=== PATIENT | male | born 1975 | race Caucasian/White ===

== ENCOUNTER → 2016-02-11 | Outpatient (CLI) | payer BC ==
[~2016-02-11] MED LIST: DIPH25CA50 PO; PANT40TA PO
--- NOTE | 2016-02-11 10:50 | DIAGNOSTIC IMAGING REPORT ---
RIGHT LOWER EXTREMITY VENOUS DOPPLER CLINICAL HISTORY: Right calf pain. COMPARISON STUDY: No previous studies for comparison. TECHNIQUE: Sonography of the deep venous system of the right lower extremity was performed. Compression and augmentation were evaluated. FINDINGS: The right common femoral, superficial femoral and popliteal veins were compressible. Augmentation was normal. Flow was shown within the deep calf vessels. IMPRESSION: No evidence of deep venous thrombus within the right lower extremity. Electronically signed by: Gregor Best M.D. 02/11/2016 10:48 AM
== END | disposition home or self-care (01) ==
LOC: C.ULTRBC 10:17
PROVIDERS: ATTEND Internal Medicine Geriatric Medicine
DX: M79.669 Pain in unspecified lower leg (principal)

== ENCOUNTER → 2017-04-20 | Outpatient (CLI) | payer BC ==
[~2017-04-20] MED LIST changes: +ALL100 PO; +MULT-513 PO
[2017-04-20 11:11] LABS: BASO % 1.9 %; BASO ABS # 0.09 K/uL (0-0.2); EOS % 4.4 %; EOS ABS # 0.21 K/uL (0-0.5); HEMATOCRIT 42.6 % (42-52); HEMOGLOBIN 15.5 g/dL (14.0-18.0); LYMPH % 38.5 %; LYMPH ABS # 1.85 K/uL (1.2-3.4); MEAN CELL VOLUME 92.4 fL (80-100); MEAN CORPUSCULAR HEMOGLOBIN 33.6 pg (25-34); MEAN CORPUSCULAR HGB CONC 36.4 g/dl (32-36); MEAN PLATELET VOLUME 11.1 fL (7.4-10.4); MONO % 8.3 %; NEUT % 46.9 %; NEUT ABS # 2.25 K/uL (1.4-6.5); PLATELET COUNT 208 K/uL (130-400); RED CELL DISTRIBUTION WIDTH CV 12.6 % (11.5-14.5); RED CELL DISTRIBUTION WIDTH SD 42.5 fL (36.4-46.3)
[2017-04-20 11:39] LABS: ALBUMIN 4.1 gm/dl (3.4-5.0); ALT/SGPT 49 U/L (12-78); AST/SGOT 33 U/L (15-37); BLOOD UREA NITROGEN 6 mg/dl (7-18); CARBON DIOXIDE 25 mmol/L (21-32); CREATININE 0.86 mg/dl (0.60-1.40); GLUCOSE 81 mg/dl (70-99); POTASSIUM 3.8 mmol/L (3.5-5.1); SODIUM 137 mmol/L (136-145); URIC ACID 5.6 mg/dl (2.6-7.2)
[2017-04-20 11:42] LABS: ALKALINE PHOSPHATASE 55 U/L (45-117); TOTAL PROTEIN 7.4 gm/dl (6.4-8.2)
== END | disposition home or self-care (01) ==
LOC: C.LABBC 08:58
PROVIDERS: ATTEND Family Medicine Adult Medicine
DX: R10.9 Unspecified abdominal pain (principal); M10.9 Gout, unspecified

== ENCOUNTER 2017-04-21 19:55 | Emergency (ER) | payer BC ==
[~2017-04-21] VITALS: Ht 190.5 cm; Wt 95.6 kg
[~2017-04-21 19:55] MED LIST changes: -ALL100 PO; -MULT-513 PO
[2017-04-21 20:00] VITALS: TEMP 37; Ht 190.5 cm; Wt 95.6 kg
[2017-04-21] MEDS ORDERED: KETOROLAC TROMETHAMINE 60 MG/2 ML VIAL IM STA (21:31)
--- NOTE | 2017-04-21 22:21 | DIAGNOSTIC IMAGING REPORT ---
ULTRASOUND RIGHT UPPER QUADRANT ABDOMEN CLINICAL HISTORY: Right upper quadrant abdominal pain. COMPARISON STUDY: No priors. TECHNIQUE: Real-time, grayscale, and color flow sonography of the right upper quadrant of the abdomen was performed. Images are reviewed in the transverse and longitudinal planes. FINDINGS: Liver: The liver is enlarged and demonstrates heterogeneously increased echotexture consistent with hepatic steatosis. There is no intrahepatic biliary ductal dilatation. The main portal vein is patent. Gallbladder: Small gallbladder polyps are incidentally noted and measure up to 4 mm. No gallstones are identified. There is no gallbladder wall thickening or pericholecystic fluid. A sonographic Kaur's sign is reportedly absent. The common bile duct measures up to 0.4 cm in diameter. Pancreas: Not well visualized due to overlying bowel gas. Right kidney: Survey images of the right kidney demonstrate normal size and echotexture. There is no hydronephrosis. Ascites: None. IMPRESSION: 1. No acute sonographic abnormality is identified in the right upper quadrant. No gallstones are seen. 2. Hepatomegaly and hepatic steatosis. Electronically signed by: Ronni Shah M.D. 04/21/2017 10:20 PM Dictated Date/Time: 04/21/2017 10:17 PM
--- NOTE | 2017-04-21 22:24 | EMERGENCY ROOM VISIT NOTE ---
History First contact with patient: 21:15 Chief Complaint: FLANK PAIN Stated Complaint: R SIDE BACK PAIN History of Present Illness The patient is a 41 year old male who presents to the Emergency Room with complaints of right flank pain intermittently 1 year. The patient states he has been experiencing pain approximately once per month for the past year. Over the past 2 months, the patient has had increased pain and been complaining about it more. Since Wednesday of this week, the patient states pain has been getting worse. He did see his primary care provider yesterday, and had labs and a urinalysis performed yesterday here at the hospital. The patient states he was informed that time by his PCP that previous labs completed in 2016 showed elevated LFTs. The patient states he did not know of any elevation at that time, and is concerned for possible liver disease. He states since yesterday and having labs completed, and his pain has significantly worsened. He is scheduled for an ultrasound of the abdomen to be completed on Wednesday, but states he did not feel that he could wait until then. He has not taken any medications for his pain. He denies any injury, and states he does feel a bulge in the right flank, which is where the majority of his pain is located. He rates the pain 8/10, and describes it as constant, dull, and changing to more of a burning or tearing sensation more recently. He states this morning, his first urine appeared brown, however the rest of his urine throughout the day has been normal. The patient works on the [employer], and spends frequent amount of time sitting. He denies any recent lifting heavy objects or overall physical activity. Review of Systems A complete 10 point review of systems was reviewed with the patient with pertinent positives and negatives as per history of present illness. All else were negative. Past Medical/Surgical History GERD, gout Social History Smoking Status: Current Every Day Smoker Marital Status: Housing Status: lives with family Occupation Status: employed Current/Historical Medications Scheduled Allopurinol (Allopurinol), 100 MG PO DAILY Multivitamins/Minerals (Mvi With Minerals), 1 TAB PO DAILY Pantoprazole (Protonix), 40 MG PO DAILY Physical Exam Vital Signs Date Time Temp Pulse Resp B/P (MAP) Pulse Ox O2 Delivery O2 Flow Rate FiO2 04/21/17 23:28 74 16 137/91 97 04/21/17 22:42 75 20 128/78 97 Room Air 04/21/17 20:00 37.0 98 20 130/91 96 Room Air Physical Exam VITALS: Vitals are noted on the nurse's note and reviewed by myself. Vital signs stable. GENERAL: This is a 41-year-old white male, in no acute distress, nondiaphoretic , well-developed well-nourished. SKIN: The skin was without rashes, erythema, edema, or bruising. There is no tenting of the skin. Capillary reflex less than 2 seconds. HEAD: Normocephalic atraumatic. EARS: External auditory canals clear, tympanic membranes pearly camacho without erythema or effusion bilaterally. EYES: Pupils equal round and reactive to light and accommodation. Conjunctivae without injection, sclerae without icterus. Extraocular movements intact. NOSE: Patent, turbinates without inflammation or discharge. No sinus tenderness. MOUTH: Mucous membranes moist. Tonsils are not enlarged. Pharynx without erythema or exudate. Uvula midline. Airway patent. Tongue does not deviate. NECK: Supple without nuchal rigidity. No lymphadenopathy. No thyromegaly. Cervical spine is nontender. No JVD. HEART: Regular rate and rhythm without murmurs gallops or rubs. LUNGS: Clear to auscultation bilaterally without wheezes, rales or rhonchi. No dullness to percussion. No retractions or accessory muscle use. ABDOMEN: Positive bowel sounds x 4. Normal tympanic percussion. Mild right upper quadrant tenderness. Soft, nontender, without masses or organomegaly. Kaur sign negative. No guarding or rebound tenderness. Positive CVA tenderness on the right. MUSCULOSKELETAL: No muscle atrophy, erythema, or edema noted. The patient has tenderness of the right 12th rib on palpation. Full range of motion without joint tenderness in all extremities. No other tenderness to palpation. Normal gait. Strength 5/5 throughout. NEURO: Patient was alert and oriented to person place and time. Normal sensation to light and sharp touch. Deep tendon reflexes 2+ throughout. No focal neurological deficits. Medical Decision & Procedures ER Provider Diagnostic Interpretation: ULTRASOUND RIGHT UPPER QUADRANT ABDOMEN CLINICAL HISTORY: Right upper quadrant abdominal pain. COMPARISON STUDY: No priors. TECHNIQUE: Real-time, grayscale, and color flow sonography of the right upper quadrant of the abdomen was performed. Images are reviewed in the transverse and longitudinal planes. FINDINGS: Liver: The liver is enlarged and demonstrates heterogeneously increased echotexture consistent with hepatic steatosis. There is no intrahepatic biliary ductal dilatation. The main portal vein is patent. Gallbladder: Small gallbladder polyps are incidentally noted and measure up to 4 mm. No gallstones are identified. There is no gallbladder wall thickening or pericholecystic fluid. A sonographic Kaur's sign is reportedly absent. The common bile duct measures up to 0.4 cm in diameter. Pancreas: Not well visualized due to overlying bowel gas. Right kidney: Survey images of the right kidney demonstrate normal size and echotexture. There is no hydronephrosis. Ascites: None. IMPRESSION: 1. No acute sonographic abnormality is identified in the right upper quadrant. No gallstones are seen. 2. Hepatomegaly and hepatic steatosis. Electronically signed by: Ronni Shah M.D. 04/21/2017 10:20 PM Dictated Date/Time: 04/21/2017 10:17 PM PA CHEST WITH RIGHT-SIDED RIB SERIES CLINICAL HISTORY: Right posterior rib pain. FINDINGS: A PA chest radiograph with 4 additional views may right-sided rib series is compared to study dated 09/07/2013. The cardiomediastinal silhouette is unremarkable. The lungs and pleural spaces are clear. No pneumothorax is seen. There is no radiographic evidence of acute/distracted right-sided rib fracture on the rib series. The remainder of the bony thorax is grossly intact. IMPRESSION: 1. The lungs are clear. 2. There is no radiographic evidence of right-sided rib fracture as clinically queried. Electronically signed by: Ronni Shah M.D. 04/21/2017 11:03 PM Dictated Date/Time: 04/21/2017 11:01 PM Medications Administered Medications (Trade) Dose Ordered Sig/Karthik Route Start Time Stop Time Status Last Admin Dose Admin Ketorolac Tromethamine (Toradol Inj) 60 mg NOW STAT IM 04/21/17 21:31 04/21/17 21:33 DC 04/21/17 21:49 60 MG ED Course The patient was seen and evaluated as above. Previous medical records including laboratory results from yesterday reviewed. Imaging performed as above. This was reviewed by myself and radiologist as above. I discussed all findings with patient at bedside peer Discharge instructions reviewed, the patient was discharged home in good condition. Medical Decision This is a 41-year-old male patient who presents to the emergency department today complaining of intermittent right flank pain 1 year. The pain has significantly worsened since yesterday, when the patient was told by his primary care provider that it could potentially be a liver or kidney issue. The patient states he has been very concerned due to previous LFTs being elevated back in 2016. He had outpatient labs performed yesterday, which I did review. These did not reveal any leukocytosis, anemia, thrombocytopenia. Renal , hepatic function normal. Electrolytes normal. Patient's AST was 33, and ALT was 49. UA was negative for signs of infection, blood, or other abnormalities. Imaging was performed as above due to the right flank pain as well as rib pain. There is no obvious acute abnormalities. There is some hepatic steatosis and slight hepatomegaly, however I do not suspect this is the cause of the patient's discomfort, as his tenderness is overlying the rib. The patient states he is feeling significantly improved after Toradol and the knowledge of no acute abnormalities. I suspect his symptoms were exacerbated over the past 24-48 hours due to the knowledge of previous abnormal liver function studies. The patient was encouraged to treat himself outpatient for pain with OTC analgesics. He was agreeable to this plan. He is encouraged to follow-up closely with his primary care provider due to the abnormalities found on ultrasound. Etiologies such as renal colic, musculoskeletal, appendicitis, diverticulitis, mesenteric ischemia, aortic pathology, infections, inflammatory bowel disease, PUD, biliary pathology, UTI, as well as others were entertained. Medication Reconcilliation Current Medication List: was personally reviewed by me Blood Pressure Screening Patient's blood pressure: Normal blood pressure Impression Primary Impression: Right flank pain Departure Information Dispostion Home / Self-Care Condition GOOD Referrals Yovany Bailey M.D. (PCP) Patient Instructions ED Flank Pain Uncertain Cause, My [facility] Additional Instructions He was seen in the emergency department today for right flank pain. As discussed, this pain does appear to be over your rib. Ultrasound did show slightly enlarged liver with some mild hepatic steatosis. You should follow-up with your primary care provider regarding this finding. Ibuprofen(Motrin, Advil) may be used for fever or pain. Use 600mg every six hours as needed. Take with food. Avoid using more than 2400mg in a 24 hour period. Do not use 2400mg per day for more than three consecutive days without physician direction. Prolonged inappropriate use can lead to stomach upset or ulcers. (AND/OR) Acetaminophen(Tylenol) may be used for fever or pain. Use 1000mg every six hours as needed. Avoid using more than 3000mg in a 24 hour period. He may using ice pack or heating pad to help with discomfort and swelling. As discussed, labs which were performed yesterday were reviewed. There were no significant abnormal findings. Please follow-up with your primary care provider for ongoing management of your concerns. Return to the emergency department for any significantly worsening pain, redness , discoloration, or other concerning symptoms.
[2017-04-21] MEDS ORDERED: MULT-513 PO (22:58)
[2017-04-21] MEDS ORDERED: ALL100 PO (22:58)
--- NOTE | 2017-04-21 23:04 | DIAGNOSTIC IMAGING REPORT ---
PA CHEST WITH RIGHT-SIDED RIB SERIES CLINICAL HISTORY: Right posterior rib pain. FINDINGS: A PA chest radiograph with 4 additional views may right-sided rib series is compared to study dated 09/07/2013. The cardiomediastinal silhouette is unremarkable. The lungs and pleural spaces are clear. No pneumothorax is seen. There is no radiographic evidence of acute/distracted right-sided rib fracture on the rib series. The remainder of the bony thorax is grossly intact. IMPRESSION: 1. The lungs are clear. 2. There is no radiographic evidence of right-sided rib fracture as clinically queried. Electronically signed by: Ronni Shah M.D. 04/21/2017 11:03 PM Dictated Date/Time: 04/21/2017 11:01 PM
[2017-04-21 23:28] VITALS: BP 137/91; PULSE 74; O2SAT 97
== END 2017-04-21 23:28 | disposition home or self-care (01) ==
LOC: C.EDB 19:56 → C.EDC 23:28
DX: R10.9 Unspecified abdominal pain (principal); R10.11 Right upper quadrant pain; R16.0 Hepatomegaly, not elsewhere classified; K76.0 Fatty (change of) liver, not elsewhere classified; F17.200 Nicotine dependence, unspecified, uncomplicated

== ENCOUNTER → 2017-04-24 | Outpatient (CLI) | payer BC ==
[~2017-04-24] MED LIST changes: +ALL100 PO; -DIPH25CA50 PO; +MULT-513 PO
--- NOTE | 2017-04-24 10:43 | DIAGNOSTIC IMAGING REPORT ---
THORACIC SPINE 3 VIEWS ROUTINE HISTORY: Pain M54.9 Mid back [id number] COMPARISON: None. FINDINGS: There is no fracture. No subluxation. Mild degenerative disc changes throughout. Minimal osteophytic reaction low thoracic region. No acute process. IMPRESSION: Mild degenerative change. No acute bony abnormality. The above report was generated using voice recognition software. It may contain grammatical, syntax or spelling errors. Electronically signed by: Boo Moser M.D. 04/24/2017 10:42 AM Dictated Date/Time: 04/24/2017 10:41 AM
== END | disposition home or self-care (01) ==
LOC: C.RAD1850 10:19
PROVIDERS: ATTEND Family Medicine Adult Medicine
DX: M54.9 Dorsalgia, unspecified (principal)

== ENCOUNTER 2018-06-06 05:57 | Observation (INO) ==
--- NOTE | 2018-05-13 14:37 | PAT Medication Instructions ---
Medication Instructions Date of Service May 13, 2018 Home Medications allopurinol 100 mg PO QAM pantoprazole 40 mg PO QAM Garlic 1 tab PO QAM ibuprofen 400 mg PO QID PRN multivitamin 1 tab PO QAM ASK your surgeon for instructions ibuprofen 400 mg PO QID PRN STOP taking 2 weeks before surgery Garlic 1 tab PO QAM DO NOT take the morning of surgery multivitamin 1 tab PO QAM Take morning of surgery With a small sip of water, OTHERWISE NOTHING TO EAT OR DRINK AFTER MIDNIGHT: allopurinol 100 mg PO QAM pantoprazole 40 mg PO QAM Other Notes If you have any questions please call us at [phone] or [phone] or [phone] or [phone]
--- NOTE | 2018-05-16 08:49 | Anesthesiology Consultation ---
Date of Service May 16, 2018 Assessment & Plan (1) Encounter for pre-operative examination: PATIENT HAS PROPOFOL ALLERGY. HAD ANAPHYLACTIC REACTION DURING EGD/COLONOSCOPY 2013 AND WAS REFERRED FOR ALLERGY TESTING. Allergy Consult 2013: "Skin testing for lidocaine was negative...They does not have any evidence of egg allergy. Some patients who receive propofol and have egg allergies have had allergic reactions. That certainly is not the case here. He does not have any sensitivity to lidocaine. It is unlikely that he is latex sensitive. He may have had mast cell degranulation from propofol on a non-IgE mediated basis. This has been reported in the literature. Unfortunately a tryptase level was not obtained at the time of his systemic reaction...The patient can safely use lidocaine again. My recommendation at this point would be to avoid propofol completely." *pt also rec'd TOPICAL Cetacaine spray during EGD. It does not appear this was skin tested with director religious education, and its components (benzocaine, tetracaine, butamben, benzalkonium chloride, cetyldimethylethylam monium bromide) are still listed in patient's allergies. Chart Review Chart Review: Acceptable Risk for Surgery and Patient seen in Pre Admission Testing Teaching & Discussion Instructed NPO after midnight before surgery, except medications with 15 cc of water. Medication instructions provided according to the PAT guidelines. History Surgery Operation Date: 06/06/18 07:30 Proposed Procedures p C5-C6 Anterior Cervical Discectomy and Fusion with Iliac Crest Bone Graft - Suhas Soto, Height/Weight Height: 6 ft 2.5 in Weight: 105.2 kg Allergies Allergy/AdvReac Type Severity Reaction Status Date / Time benzalkonium chloride Allergy Severe rash, SOB, Verified 04/14/18 14:29 tachycardia benzocaine Allergy Severe rash, SOB, Verified 04/14/18 14:29 tachycardia butamben Allergy Severe rash, SOB, Verified 04/14/18 14:29 tachycardia Cetyldimethylethylammonium Allergy Severe rash, SOB, Verified 04/14/18 14:29 [place] tachycardia propofol Allergy Severe rash, SOB, Verified 04/14/18 14:30 tachycardia-"WENT INTO SHOCK" tetracaine Allergy Severe rash, SOB, Verified 04/14/18 14:29 tachycardia Medications Home Medications Medication Instructions Recorded Confirmed Last Taken allopurinol 100 mg PO QAM 10/27/17 04/14/18 11/30/17 pantoprazole 40 mg PO QAM 10/27/17 04/14/18 11/30/17 Garlic 1 tab PO QAM 04/14/18 04/14/18 Unknown ibuprofen 400 mg PO QID PRN 04/14/18 04/14/18 Unknown multivitamin 1 tab PO QAM 04/14/18 04/14/18 Unknown Past Medical History Medical History Gout Allergic reaction (Acute 10/03/13) Cervical radicular pain GERD (gastroesophageal reflux disease) Past Surgical History Surgical History History of colonoscopy History of esophagogastroduodenoscopy (EGD) History of tonsillectomy Past Anesthesia History No Family Hx of Anesthesia Complications and Other Anaphylactic reaction to PROPOFOL. HAD ALLERGY TESTING, 2013. History of PONV No Motion Sickness Screening History of Motion Sickness: Yes STOP BANG Total 3 Social History Smoking Status: Light tobacco smoker tobacco type: cigars Smoking cigarettes per day: 2-3 CIGARS A DAY Do You Dip or Chew Tobacco: Yes (1 CAN A WEEK) Hx Alcohol Use: Yes Alcohol type: beer alcohol intake frequency: a few times a week Hx Substance Use: No substance use type: does not use Exercise / Class Metabolic Activity II 4-5 Yardwork/Stairs/Walk up hill Review of Systems Pt denies any recent chest pain, shortness of breath, palpitations, cough, fever or URI. Physical Exam Vital Signs BP: 135/88 P: 80bpm SPO2: 95% RA T: 98.3 F R: 16 ENMT Mouth: + dental restorations (crowns on top front incisors); no chipped teeth and no loose teeth Thyromental Distance: > or= 3.5 Finger Breadths (3.5) Mallampati Class: II Neck normal visual inspection and + limited neck extension (mildly) Respiratory normal respiratory effort Auscultation: lungs clear to auscultation bilaterally Cardiovascular Rate/Rhythm: regular rate and regular rhythm Heart Sounds: no murmur Extremities: no edema Testing Electrocardiogram Date: 12/01/17 Findings: + NSR @ (79) Left axis deviation. Chest X-Ray Date: 10/27/17 Findings: + NAD Laboratory Results 05/16/18 09:00 05/16/18 09:00 Blood Type A Positive 05/16/18 09:00 Antibody Screen NEGATIVE 05/16/18 09:00 PT 10.9 Seconds (9.0-12.0) 05/16/18 09:00 INR 1.1 (0.9-1.1) 05/16/18 09:00 APTT 26.4 Seconds (21.0-31.0) 05/16/18 09:00
[2018-05-16 10:09] LABS: Basophils # (auto) 0.07 K/uL (0-0.2); Basophils % (auto) 1.5 %; Eosinophils # (auto) 0.17 K/uL (0-0.5); Eosinophils % (auto) 3.6 %; Hematocrit (blood only) 39.6 % (42-52); Hemoglobin 14.3 g/dL (14.0-18.0); Immature Granulocytes # (auto) 0.01 K/uL (0.00-0.02); Immature Granulocytes % (auto) 0.2 %; Lymphocytes # (auto) 2.09 K/uL (1.2-3.4); Lymphocytes % (auto) 44.8 %; Mean Corpuscular Hgb Conc 36.1 g/dL (32-36); Mean Corpuscular Volume 91.7 fL (80-100); Mean Platelet Volume 10.8 fL (7.4-10.4); Monocytes # (auto) 0.43 K/uL (0.11-0.59); Monocytes % (auto) 9.2 %; Neutrophils # (auto) 1.89 K/uL (1.4-6.5); Neutrophils % (auto) 40.7 %; Platelet Count 189 K/uL (130-400); RDW Coefficient of Variation 12.5 % (11.5-14.5); RDW Standard Deviation 42.2 fL (36.4-46.3); Red Blood Count 4.32 M/uL (4.7-6.1); White Blood Count 4.66 K/uL (4.8-10.8)
[2018-05-16 10:32] LABS: INR 1.1 (0.9-1.1); Partial Thromboplastin Time 26.4 Seconds (21.0-31.0); Prothrombin Time 10.9 Seconds (9.0-12.0)
[2018-05-16 11:04] LABS: BUN Creatinine Ratio 15.1 (10-20); Calcium 8.8 mg/dl (8.5-10.1); Creatinine Clr Calc Pharmacy 150.7 ml/min; Est GFR (Non-African American) 108.8; Potassium 4.1 mmol/L (3.5-5.1)
--- NOTE | 2018-06-03 14:39 | History and Physical Report ---
DATE OF ADMISSION: 06/06/2018 CHIEF COMPLAINT: Neck pain, arm pain, weakness and signs of spinal cord compression. He has significant cord compression C5-C6 cervical spine and combination of disc osteophyte formation. HISTORY OF PRESENT ILLNESS: He is 42. He has had ongoing difficulties with numbness and tingling. PAST MEDICAL HISTORY: Positive for difficulty with anesthesia, hypertension. No COPD, diabetes, connective tissue disorder, ulcer disease. PAST SURGICAL HISTORY: Tonsils and wisdom teeth. ALLERGIES: LIDOCAINE, PROPOFOL. CURRENT MEDICATIONS: Allopurinol. FAMILY HISTORY: Diabetes, stroke, heart disease and breast carcinoma. SOCIAL HISTORY: . No tobacco or alcohol. He is getting weaker with upper and lower extremities. REVIEW OF SYSTEMS: He admits to joint pain, stiffness, weakness, muscle pain and progressive deficits. Denies fever, sweats, chills. Denies chest pain, palpitations. No nausea, vomiting. No urgency, frequency or loss of bowel or bladder control. PHYSICAL EXAMINATION: GENERAL: He is 6 feet 3 inches, 220, is in distress, certainly concerned. VITAL SIGNS: Blood pressure 130/80, pulse 80, respiratory rate 16, afebrile. He is alert, oriented, mood appropriate. HEENT: Essentially normal. Cranial nerves essentially normal. CARDIAC: Normal S1, S2, about 80 beats per minute. LUNGS: Clear to auscultation. No rales, rhonchi or wheezing. IMAGES: His images demonstrate spinal cord compression, C5-C6 cervical spine. IMPRESSION: C5-C6 spinal cord compression, progressive neurological deficit. PLAN: Includes an ACDF of the cervical spine with iliac crest bone graft.
[2018-06-06] MEDS ORDERED: CEFAZOLIN 2000MG 2,000 MG/15 ML SYR IV SCH (06:00)
[2018-06-06] MEDS ORDERED: SODIUM CHLORIDE 0.9% 1,000 ML IV SCH (06:00)
[2018-06-06] MEDS ORDERED: LR 15ML/HR IV SCH (06:00)
[2018-06-06] MEDS ORDERED: BACITRACIN INJ 50,000 UNIT VIAL ONE (06:59)
[2018-06-06] MEDS ORDERED: THROMBIN FOR SOLN 20000 UNIT KIT ONE (06:59)
[2018-06-06] MEDS ORDERED: BUPIVACAINE/EPINEPHRINE 0.5% MPF 1:200,000 30 ML VIAL ONE (06:59)
[2018-06-06] MEDS ORDERED: GELATIN SPONGE SZ 100 ONE (07:00)
[2018-06-06] MEDS ORDERED: MIDAZOLAM HCL 1 MG/ML 2ML VIAL ONE (07:12)
[2018-06-06] MEDS ORDERED: fentaNYL citrate 100 MCG/2 ML VIAL ONE ×2 (07:12)
--- NOTE | 2018-06-06 07:14 | History & Physical Bridge Note ---
Date of Service June 06, 2018 History & Physical Bridge Note I have examined the patient, reviewed the History & Physical and in the interval since the performance of the History & Physical I have noted the following changes of clinical significance: no changes noted
[2018-06-06] MEDS ORDERED: HYDROmorphone INJ 2 MG/ML SYR/VIAL ONE (08:17)
[2018-06-06] MEDS ORDERED: NEOSTIGMINE METHYLSULFATE 5 MG/5 ML SYR ONE (08:19)
[2018-06-06] MEDS ORDERED: LABETALOL HCL IV 5 MG/ML 20ML IV ONE (08:19)
[2018-06-06] MEDS ORDERED: ONDANSETRON INJ 2 MG/ML 2 ML VIAL ONE (08:19)
[2018-06-06] MEDS ORDERED: CISATRACURIUM BESYLATE IV SOLN 2 MG/ML 10 ML VIAL IV ONE (08:19)
[2018-06-06] MEDS ORDERED: ETOMIDATE 2 MG/ML 20 ML VIAL IV ONE (08:19)
[2018-06-06] MEDS ORDERED: GLYCOPYRROLATE 0.2 MG/ML VIAL ONE (08:19)
[2018-06-06] MEDS ORDERED: DEXAMETHASONE SOD INJ 4 MG/ML VIAL ONE (08:19)
[2018-06-06] MEDS ORDERED: ATROPINE SULFATE 0.1 MG/ML 10ML SYR IV PRN (09:14)
[2018-06-06] MEDS ORDERED: ePHEDrine sulfate 50 MG/ML AMP IV PRN (09:14)
[2018-06-06] MEDS ORDERED: FLUMAZENIL 0.1 MG/1 ML 10 ML VIAL IV PRN (09:14)
[2018-06-06] MEDS ORDERED: PROMETHAZINE HCL 12.5 MG in SODIUM CHLORIDE 0.9% 50 ML IV PRN (09:14)
[2018-06-06] MEDS ORDERED: HYDROmorphone INJ 1 MG/ML SYRINGE IV PRN (09:14)
[2018-06-06] MEDS ORDERED: LABETALOL HCL IV 5 MG/ML 20ML IV PRN (09:14)
[2018-06-06] MEDS ORDERED: ONDANSETRON INJ 2 MG/ML 2 ML VIAL IV PRN ×2 (09:14→10:52)
[2018-06-06] MEDS ORDERED: NALOXONE HCL 0.4 MG/1 ML VIAL/CARP IV PRN ×2 (09:14→10:52)
--- NOTE | 2018-06-06 09:16 | Post Operative Brief Note ---
Immediate Post Op Note v1 Date of Surgery June 06, 2018 Pre & Post Diagnosis Operation Date: 06/06/18 07:30 Pre-Op Diagnosis: Cord Compression Post-Op Diagnosis: Cord Compression Procedure Operation Date: 06/06/18 07:30 Actual Procedures p C5-C6 Anterior Cervical Discectomy and Fusion with Left Iliac Crest Bone Graft(Not Applicable) - Suhas Soto DO Surgeon Suhas Soto DO Insulation Estimator karli Estimated Blood Loss 10 Findings Consistent with Post-Op Diagnosis Drains Дмитрий Drain Disposition Accompanied Patient To Recovery: Yes Overlapping Procedure I was immediately available: during the entire case. Back up surgeon: was not required during procedure.
--- NOTE | 2018-06-06 10:21 | Fluoroscopy Report ---
FL spine 1V any level HISTORY: Laminectomy and fusion. FLUOROSCOPY TIME: 4.4 seconds. FINDINGS: Intraoperative fluoroscopy was provided for the cervical spine. 2 fluoroscopic spot images were obtained. Findings consistent with an anterior cervical fusion at C5-C6 IMPRESSION: Fluoroscopy provided for a cervical fusion.. The above report was generated using voice recognition software. It may contain grammatical, syntax or spelling errors. Electronically signed by: Boo Moser M.D. 06/06/2018 10:20 AM
--- NOTE | 2018-06-06 10:31 | Anesthesiology Progress Note ---
Date of Service June 06, 2018 Anesthesia Post Procedure Vital Signs Vital Signs: Temp Pulse Resp BP Pulse Ox 06/06/18 10:02 63 16 146/79 H 96 06/06/18 10:00 58 L 14 146/79 H 95 06/06/18 09:50 62 17 152/94 H 96 06/06/18 09:40 59 L 14 128/98 96 06/06/18 09:30 58 L 14 156/87 H 94 06/06/18 09:20 64 14 151/105 H 94 06/06/18 09:14 36.2 C L 62 14 134/91 96 06/06/18 06:15 36.5 C 87 16 158/99 H 98 Notes Mental Status: alert / awake / arousable Patient Amnestic to Procedure: Yes Nausea / Vomiting: adequately controlled Pain: adequately controlled Airway Patency, RR, SpO2: stable & adequate BP & HR: stable & adequate Hydration State: stable & adequate Anesthetic Complications: no major complications apparent
[2018-06-06] MEDS ORDERED: DEXAMETHASONE SOD PHOSPHATE 8 MG in SYRINGE 0 ML IV PRN (10:52)
[2018-06-06] MEDS ORDERED: HYDROmorphone INJ 0.5 MG/0.5 ML SYR IV PRN (10:52)
[2018-06-06] MEDS ORDERED: OXYCODONE HCL IR 5 MG TAB (IMMEDIATE RELEASE) PO PRN (10:52)
[2018-06-06] MEDS ORDERED: LORazepam 0.5 MG/1 ML VIAL IV PRN (10:52)
[2018-06-06] MEDS ORDERED: ACETAMINOPHEN 1,000 MG/100 ML VIAL IV PRN (10:52)
[2018-06-06] MEDS ORDERED: RACEPINEPHRINE 2.25% NEBU SOLN 0.5 ML VIAL INH PRN (10:52)
[2018-06-06] MEDS: SODIUM CHLORIDE 0.9% 1000ML 1,000 ML IV SCH ×2 (11:42→23:31)
[2018-06-06] MEDS: CEFAZOLIN 2000MG 2,000 MG/15 ML SYR IV SCH ×2 (15:43→23:31)
--- NOTE | 2018-06-06 18:27 | Operative Report ---
DATE OF OPERATION: 06/06/2018 PREOPERATIVE DIAGNOSIS: Cord compression C5-C6 cervical. POSTOPERATIVE DIAGNOSIS: Same. PROCEDURE: Anterior cervical discectomy and fusion and left iliac crest bone graft. SURGEON: Suhas Soto M.D. CLAIM TAKER: Wesly Rollins PA-C. COMPLICATIONS: No complications. BLOOD LOSS: Less than 10 mL. DESCRIPTION OF PROCEDURE: The patient was taken to the operating room and general intubated anesthetic provided to the patient. Kept supine, prepped and draped sterile. We made a skin incision, fascial incision, a classic Venegas-Lugo approach to the cervical spine dissecting the soft tissue. We came right down on the 5-6 interval. We did a formal discectomy. We got lateral to the uncovertebral joints bilaterally. We got back and through the posterior longitudinal ligament. There was a significant amount of bone osteophyte on the cord. This was dissected free and I was pleased with the complete discectomy at the 5-6 interval. We then went to the left iliac crest, made a skin incision, fascial incision. I fashioned a structural autograft for the vacated discectomy site up at the cervical spine. This measured approximately 7-8 mm in height, tapered to about 7, approximately 16-17 mm in length. This was placed into the vacated discectomy. We irrigated. We then placed an anterior plate from the [employer] over the construct. This was transfixed with 16 mm screws. The plate was 14 mm in length. The postoperative x-rays in the operating room were superb; proper positioning of the implant. We then irrigated and closed the cervical spine over a Pelham drain with suture. Sterile dressings applied. The iliac crest closed with 1-0 Vicryl, 2-0 and 3-0 nylon. Sterile dressings applied throughout. The patient was placed in cervical collar. We transported the patient to PACU improved stable. I was with the patient through the entire portion. I was with the patient on transport to PACU. Implants used by the [employer]. There were no complications. I attest to the content of the Intraoperative Record and any orders documented therein. Any exception s are noted below.
[2018-06-06] MEDS ORDERED: ACETAMINOPHEN 325 MG TAB PO PRN (19:15)
[2018-06-06] MEDS: DOCUSATE SODIUM 100 MG CAP PO SCH (20:31)
--- OUTSIDE RECORDS SUMMARY | 2018-06-06 22:47 | External Medical Summary | Continuity of Care Document ---
:1975 Author Name Ruddy Nichols, Provider Address Unavailable Unavailable , Care Team Providers Name Role Phone Lynn Nichols, Yovany Unavailable [email or web address] Lynn Nichols, Yovany Unavailable Unavailable Unavailable Unavailable Unavailable Problems Weakness of lower extremity (729.89) (R29.898) Weakness of both upper extremities (729.89) (R29.898) Muscle fatigue (729.89) (M62.89) Cervical radicular pain (723.4) (M54.12) Degenerative cervical spinal stenosis (723.0) (M48.02) Mid back pain (724.5) (M54.9) Paresthesias (782.0) (R20.2) Positive MEHREEN (antinuclear antibody) (795.79) (R76.8) Fatigue (780.79) (R53.83) Tingling in extremities (782.0) (R20.2) Right flank pain, chronic (789.09) (R10.9) Lhermitte's sign positive (781.99) (R29.818) Numbness of right hand (782.0) (R20.0) Dry eyes, bilateral (375.15) (H04.123) Hepatic steatosis (571.8) (K76.0) Chronic reflux esophagitis (530.11) (K21.0) Chest pain (786.50) (R07.9) Hyperlipidemia (272.4) (E78.5) Anaphylaxis (995.0) (T78.2XXA) Bilateral impacted cerumen (380.4) (H61.23) Gallbladder polyp (575.6) (K82.4) Rash (782.1) (R21) Gout (274.9) (M10.9) Palpitations (785.1) (R00.2) Current smoker (305.1) (F17.200) Witnessed apneic spells (786.03) (R06.81) Muscle strain (848.9) (T14.8XXA) Hyperglycemia (790.29) (R73.9) Snoring (786.09) (R06.83) Low libido (799.81) (R68.82) History of colonic polyps (V12.72) (Z86.010) Herpes zoster (053.9) (B02.9) Allergies and Adverse Reactions Cetacaine (Allergy) Reaction: Tachycardi a, Shortness of breath, Rash propofol (Allergy) Reaction: Anaphylaxi s Medications Multi-Vitamin TABS; TAKE 1 TABLET DAILY. Refills: 0 Pantoprazole Sodium 40 MG Oral Tablet De layed Release; TAKE 1 TABLET BY MOUTH DAILY Simone Bailey Start: 14-Sep-2013 Quantity: 30 Refills: 5 Allopurinol 100 MG Oral Tablet; take 1 tablet by mouth once daily Simone Bailey Start: 25-Sep-2014 Quantity: 30 Refills: 5 Procedures Ultrasound Abdomen LIMITED Date: 18-Apr-2018 History of Complete Colonoscopy For Polyp Removal Status: Completed History of Tonsillectomy Status: Complet ed History of Esophageal Dilation Status: C ompleted History of Corneal LASIK Status: Complet ed Immunizations Immunizations not documented Family History Father Family history of Unknown whether patient has any heal th problems Status: Active Mother Family history of hypertension (V17.49) (Z82.49) Status: Act [place] Social History - Smoking Status Smoker. current status unknown Plan of Treatment Planned Encounters Appointment; Janelle Carlson PA-C Start: 14-Oct-2018 8:[address] Planned Observations Planned Goals not documented Results CBC With DIFF (Pending) Laboratory: [facility] Laboratory [address] [place] [address] tel: 16-May-2018 9:00 WBC 4.66 K/uL (below low Range: 4.8-10. 8 K/uL threshold) RBC 4.32 {M/uL} (below low Range: 4.7-6 .1 M/uL threshold) HEMOGLOBIN 14.3 g/dL Range: 14.0-18.0 g /dL HEMATOCRIT 39.6 % (below low Range: 42- 52 % threshold) MCV 91.7 fL Range: 80-100 fL MCH 33.1 pg Range: 25-34 pg MEAN CORPUSCULAR HGB CONC 36.1 Range: 3 2-36 g/dL g/dL (above high threshold) RED CELL DISTRIBUTION WIDTH SD Range: 3 6.4-46.3 fL 42.2 fL RED CELL DISTRIBUTION WIDTH CV Range: 1 1.5-14.5 % 12.5 % PLATELET COUNT 189 K/uL Range: 130-400 K/uL MEAN PLATELET VOLUME 10.8 fL Range: 7.4 -10.4 fL (above high threshold) NEUT % 40.7 % Range: % LYMPH % 44.8 % Range: % MONO % 9.2 % Range: % EOS % 3.6 % Range: % BASO % 1.5 % Range: % IG% 0.2 % Range: % Comments: IG paramet er reflects the combination of Metas, Myelos andPromyelocytes. Neutrophils (Auto) 1.89 K/uL Range: 1. 4-6.5 K/uL LYMPH ABS # 2.09 K/uL Range: 1.2-3.4 K/ uL MONO ABS # 0.43 K/uL Range: 0.11-0.59 K /uL EOS ABS # 0.17 K/uL Range: 0-0.5 K/uL BASO ABS # 0.07 K/uL Range: 0-0.2 K/uL IG# 0.01 K/uL Range: 0.00-0.02 K/ uL PT/INR (Pending) Laboratory: [facility] Laboratory [address] [facility] [address] tel: 16-May-2018 9:00 Prothrombin Time 10.9 {Seconds} Range: 9.0-12.0 Seconds INR 1.1 Range: 0.9-1.1 PTT (Pending) Laboratory: [facility] Laboratory [address] [facility] [address] tel: 16-May-2018 9:00 PTT PATIENT 26.4 {Seconds} Range: 21.0- 31.0 Seconds Comments: Therapeuti c APTT range is 46.0 - 66.4 seconds PARTIAL THROMBOPLASTIN RATIO 1.0 Basic Metabolic Panel Laboratory: [facility] Laboratory [address] (Pending) [address] [facility] [address] tel: 16-May-2018 9:00 SODIUM 138 mmol/L Range: 136-145 mmol /L POTASSIUM 4.1 mmol/L Range: 3.5-5.1 mmo l/L CHLORIDE 106 mmol/L Range: 98-107 mmol/ L CARBON DIOXIDE 25 mmol/L Range: 21-32 m mol/L ANION GAP 7.0 Range: 3-11 BLOOD UREA NITROGEN 13 mg/dl Range: 7-1 8 mg/dl CREATININE 0.84 mg/dl Range: 0.6-1.4 mg /dl Estimated Creatinine Clearance Range: m l/min 150.7 ml/min Comments: Est. Creat inine Clearance (Mod Cockcroft-Gault) for pharmacydosing purposes. Estimated GFR () Comment s: Units: ml/min per 126.0 1.73 meters squaredT he estimated GFR (CKD-E PI equation) has not be en validatedfor inpatie nt settings and may not be an accurate reflectiono f renal function in critical ly ill patients or those withrapidly changing renal function (e.g. CALLUM). Estimated GFR (Non- Comments: Uni ts: ml/min per Dutch) 108.8 1.73 meters squaredT he estimated GFR (CKD-E PI equation) has not be en validatedfor inpatie nt settings and may not be an accurate reflectiono f renal function in critical ly ill patients or those withrapidly changing renal function (e.g. CALLUM). BUN/CREATININE RATIO 15.1 Range: 10-20 GLUCOSE 86 mg/dl Range: 70-99 mg/dl CALCIUM 8.8 mg/dl Range: 8.5-10.1 mg/ dl BLOOD BANK HOLD TUBE Laboratory: [facility] Laboratory [address] (Pending) [address] [facility] [address] tel: 06-Jun-2018 6:23 BLOOD BANK HOLD TUBE Run: 06/06/18 0653 Thiago Castillo Pathology Report Name : CHETANDIANA Garcia Age/Sex: 42/M Location: ASUAcct: [id number] Unit: [id number] Status: [facility] [place] Room/Bed:Re06/06/18 Disch: Att Dr: Diana Soto, DO Spec: [id number] Collected: 06/06/18Received: 06/06/[address]: Diana Soto, DOCopy To: Yovany Bailey Prods: (NO ORDERED PRODUCTS)Ord Tests: (NO REPORTABLE TESTS) Test Result Flag Reference Site <No reportable results> Te sts: Date Time Order Change Action 06/05/18 1410 Blood Bank Hold 1 NEW [id number] END OF REPORT X-ray Spine, Single Laboratory: [facility] Diagnostic View (Pending) Imaging [address] [facility] 06-Jun-2018 10:19 SPINE ONE VIEW, ANY LEVEL [facility] [place] [phone] Fluoroscopy Report Patient: DIANA BENTON Admit Date: 06/06 MR#: [id number] Address1: [address] [place] [address] Acct ID:[id number] Address2: Date: 1975 [facility] [address] Age: 42 Location: [facility] Sex: M Room/Bed: Att Phy: Diana Soto DO Diagnosis: Cord Compression Karla Phy: Yovany Bailey MD Service Date: Fam Phy: Interpreting Phy: Boo Moser MD Admit Phy: Ordering Phy: Diana Soto DO cc: FL spine 1V any level HISTORY: Laminectomy and fusion. FLUOROSCOPY TIME: 4.4 seconds. FINDINGS: Intraoperative fluoroscopy was provided for the cervical spine. 2 fluoroscopic spot images were obtained. Findings consistent with an anterior cervical fusion at C5-C6 IMPRESSION: Fluoroscopy provided for a cervical fusion.. The above report was generated using voice recognition software. It may contain grammatical, syntax or spelling errors. Electronically signed by: Boo Moser M.D. 06/06/2018 10:20 AM Dictated: 06/06/18 1019 Transcribed: 06/06/18 1019 Encounters Appointment; Kylah Kitchen III, M.D. 16-Feb-2018 12:30 Encounter Diagnosis: Problem not documented Appointment; Kylah Kitchen III, M.D. 19-Jan-2018 8:00 Encounter Diagnosis: Problem not documented Appointment; Kylah Kitchen III, M.D. 05-Jan-2018 13:00 Encounter Diagnosis: Problem not documented Appointment; Inez Bear M.D. 04-Jan-2018 8:00 Encounter Diagnosis: Problem not documented Appointment; Yelitza Bailey CRNP 02-Dec-2017 9:15 Encounter Diagnosis: Problem not documented Appointment; Janelle Carlson PA-C 13-Oct-2017 8:30 Encounter Diagnosis: Problem not documented Appointment; Victorino Borja M.D. 21-Sep-2017 18:40 Encounter Diagnosis: Problem not documented Appointment; Yael Kurtz M.D. 06-Sep-2017 15:30 Encounter Diagnosis: Problem not documented Appointment; Jeffrey Hawkins DO 05-May-2017 14:40 Encounter Diagnosis: Problem not documented Appointment; Yael Kurtz M.D. 23-Apr-2017 15:30 Encounter Diagnosis: Problem not documented Appointment; Yael Kurtz M.D. 20-Apr-2017 8:30 Encounter Diagnosis: Problem not documented Appointment; [facility] 15-Oct-2016 10:15 Encounter Diagnosis: Problem not documented Appointment; [place] [address], Nursing Station 13-Oct-2016 10:15 Encounter Diagnosis: Problem not documented Appointment; Janelle Carlson PA-C 06-Oct-2016 10:15 Encounter Diagnosis: Problem not documented Appointment; Blanca Ferrer PA-C 02-Sep-2016 10:00 Encounter Diagnosis: Problem not documented Appointment; Victorino Borja M.D. 10-Jul-2016 15:40 Encounter Diagnosis: Problem not documented Appointment; Janelle Carlson PA-C 14-Oct-2018 8:30 Encounter Diagnosis: Problem not documented
[2018-06-07] MEDS: CEFAZOLIN 2000MG 2,000 MG/15 ML SYR IV SCH (07:48)
[2018-06-07] MEDS: DOCUSATE SODIUM 100 MG CAP PO SCH (07:49)
--- NOTE | 2018-06-07 08:44 | Discharge Summary ---
SUBJECTIVE: He is now approximately 22 hours post-surgery. He is improved, stable, minimal complaints, taking p.o. Get uneventful hospital course, he did have some soreness of his throat. IMPRESSION: Status post anterior cervical discectomy and fusion, iliac crest bone graft. PLAN: We will discharge him home later today. Dressing is changed. He is stable. He has a followup appointment in 14 days. He has a prescription for [place] on his chart. He has a cervical collar. Instructions were provided.
--- NOTE | 2018-06-07 08:56 | Anesthesiology Progress Note ---
Date of Service June 07, 2018 Anesthesia Post Procedure Vital Signs Vital Signs: Temp Pulse Pulse Pulse Resp BP BP 06/07/18 07:43 77 06/07/18 07:31 36.4 C L 80 18 147/98 H 06/07/18 06:10 06/07/18 05:36 36.6 C 88 16 142/85 H 06/07/18 03:36 88 16 06/07/18 03:30 36.8 C 92 H 14 139/84 06/07/18 01:35 36.7 C 98 H 16 147/85 H 06/06/18 23:38 36.7 C 97 H 16 143/89 H 06/06/18 23:32 36.6 C 97 H 16 138/84 06/06/18 23:06 117 H 16 06/06/18 21:30 36.3 C L 99 H 18 135/83 06/06/18 19:30 36.6 C 100 H 18 144/84 H 06/06/18 19:20 96 H 14 06/06/18 17:30 36.3 C L 104 H 18 139/84 06/06/18 15:30 36.5 C 96 H 17 138/96 06/06/18 15:25 89 16 06/06/18 13:30 36.3 C L 90 16 124/84 06/06/18 12:27 36.4 C L 88 16 126/84 06/06/18 11:24 89 16 06/06/18 11:22 36.4 C L 76 16 128/86 06/06/18 11:17 36.3 C L 82 16 130/86 06/06/18 10:35 36.5 C 63 16 126/87 06/06/18 10:02 63 16 146/79 H 06/06/18 10:00 58 L 14 146/79 H 06/06/18 09:50 62 17 152/94 H 06/06/18 09:40 59 L 14 128/98 06/06/18 09:30 58 L 14 156/87 H 06/06/18 09:20 64 14 151/105 H 06/06/18 09:14 36.2 C L 62 14 134/91 Pulse Ox 06/07/18 07:43 95 06/07/18 07:31 95 06/07/18 06:10 96 06/07/18 05:36 98 04/30/19 03:36 97 06/07/18 03:30 98 06/07/18 01:35 97 06/06/18 23:38 97 06/06/18 23:32 97 06/06/18 23:06 97 06/06/18 21:30 94 06/06/18 19:30 95 06/06/18 19:20 96 06/06/18 17:30 94 06/06/18 15:30 97 06/06/18 15:25 98 06/06/18 13:30 97 06/06/18 12:27 96 06/06/18 11:24 98 06/06/18 11:22 97 06/06/18 11:17 96 06/06/18 10:35 97 06/06/18 10:02 96 06/06/18 10:00 95 06/06/18 09:50 96 06/06/18 09:40 96 06/06/18 09:30 94 06/06/18 09:20 94 06/06/18 09:14 96 Pain Intensity Anterior Neck: Pain Intensity: 3 Notes Mental Status: alert / awake / arousable and participated in evaluation Patient Amnestic to Procedure: Yes Nausea / Vomiting: adequately controlled Pain: adequately controlled Airway Patency, RR, SpO2: stable & adequate BP & HR: stable & adequate Hydration State: stable & adequate Anesthetic Complications: no major complications apparent and Pt Satisfied with anesthetic care
[2018-06-07] MEDS ORDERED: ALLOPURINOL 100 MG TAB PO SCH (09:00)
[2018-06-07] MEDS ORDERED: PANTOprazole 40 MG TAB PO SCH (09:00)
[2018-06-08] MEDS ORDERED: POLYETHYLENE (MIRALAX) 17 GM PACK PO PRN (09:18)
== END 2018-06-07 11:56 | disposition home or self-care (01) ==
LOC: ASU 05:57 → 3E 05:57